=== PATIENT | male | born 1950 | race Caucasian/White ===

== ENCOUNTER → 2023-08-01 07:39 | Outpatient (REF) | payer OTHER, SELFPAY | LOC: RAD 07:39 | PROVIDERS: ATTENDING PHYSICIAN Internal Medicine | DX: Z86.73 Personal history of transient ischemic attack (TIA), and cerebral infarction without residual deficits (principal); I10 Essential (primary) hypertension; I70.0 Atherosclerosis of aorta | CPT/HCPCS: 93880 ==

== ENCOUNTER → 2024-10-03 16:28 | Outpatient (REF) | payer OTHER, SELFPAY | LOC: RAD 16:28 | PROVIDERS: ATTENDING PHYSICIAN Internal Medicine Cardiovascular Disease; FAMILY PHYSICIAN Internal Medicine | DX: I77.810 Thoracic aortic ectasia (principal); I10 Essential (primary) hypertension | CPT/HCPCS: 71275; Q9967 ==

== ENCOUNTER 2024-10-06 07:58 | Emergency (ER) | payer OTHER, SELFPAY ==
[2024-10-06] VITALS (9 sets, daily range): BP systolic 104–154; BP diastolic 70–118; BMI 23.7
--- NOTE | 2024-10-06 08:51 | ED.GENMED ---
History of Present Illness
General
Chief Complaint: Heart Rate Problem
Source: patient and spouse
Exam Limitations: none
Time Seen by Provider: 10/06/24 08:37
Nursing documentation reviewed up to this point in time: agreed with
History of Present Illness
History of Present Illness:
74-year-old male presents emergency department complaining of heart racing for the past few hours. He noticed on his watch that his heart rate was in the 150s, and came to the emergency department. He has a history of atrial fibrillation, takes
Xarelto, and has had [address] Joy.
Past History
Past History
ED Past Medical History: Arrthythmia and HTN
ED Past Surgical History: Appendectomy and Cholecystectomy
Social History
Tobacco: Non-smoker
Alcohol: Occasional
Drug: None
Personal:
Living: with family
Employment: Retired
Family History
Family History: Negative Early CAD
Review of Systems
Review of Systems
Allergies reviewed?: Yes
All Other Systems: Not applicable
Constitutional: Reports no symptoms
EENT: Reports no symptoms
Respiratory: Reports no symptoms
Cardiac: Reports palpitations
ABD/GI: Reports no symptoms
: Reports no symptoms
Musculoskeletal: Reports no symptoms
Skin: Reports no symptoms
Neurological: Reports no symptoms
Endocrine: Reports no symptoms
Hematologic/Lymphatic: Reports no symptoms
Psychiatric: Reports no symptoms
Phy Exam
Physical Exam
Physical Exam:
Physical Exam
General: no apparent distress, not acutely ill
Neck: supple. no meningeal signs. normal posterior pharynx
Heart: s1/s2 tachycardia, no murmur. equal radial
pulses.
HEENT: Pupils equal round reactive to light, EOMI
Lungs: no acute respiratory distress. clear bilaterally
Abdomen: normal bowel sounds. not tender. no CVAT
Neuro: alert and oriented. no focal neurological deficits cranial nerves II through XII intact
Skin: no rash
Psychiatric: well kept. interactive and cooperative
Extremities: no edema. no calf tenderness. negative homans. good distal pulses
Course
Orders/Labs/Results
Orders:
Orders
10/06/24 08:00
ECG [Electrocardiogram (*1)] Urgent
Reason for Study: Tachycardia
EKG- Treatment ONCE
10/06/24 08:50
Diltiazem HCl [Cardizem] 10 mg IV NOW STA
10/06/24 08:52
Diltiazem 125 mg/125 ml Nss [Cardizem] 125 mg in 125 ml IV NOW
Initial dose in mg/hr, then titrate:: 5
Titrate to keep:: Heart rate 80-100 bpm
Titrate by mg/hr:: 5 mg/hr
Frequency of titrations (minutes):: 15
Maximum dose in mg/hr:: 15
10/06/24 09:14
Complete Blood Count/With Diff Urgent
Comprehensive Metabolic Panel Urgent
Magnesium Urgent
10/06/24 10:07
EKG [Electrocardiogram (*1)] Urgent
Reason for Study: Atrial Fibrillation
EKG- Treatment ONCE
Abnormal Lab Results
10/06/24
09:14
RBC 4.43 L 10^6/uL
(4.70-6.10)
Monocytes % 12.2 H %
(1.7-9.3)
Chloride 108 H mmol/L
(98-107)
Glucose 114 H mg/dl
(70-99)
10/06/24 09:14
10/06/24 09:14
Vital Signs
Initial and Last Documented VS:
Initial Vital Signs
Temp Pulse Resp BP Pulse Ox
98.4 F 145 18 144/103 98
10/06/24 08:06 10/06/24 08:06 10/06/24 08:06 10/06/24 08:06 10/06/24 08:06
Last Documented Vital Signs
Temp Pulse Resp BP Pulse Ox
98.4 F 89 15 126/73 97
10/06/24 08:06 10/06/24 11:45 10/06/24 11:45 10/06/24 11:00 10/06/24 11:45
MDM/Problems Addressed
Differential Diagnosis Includes:
Rapid atrial flutter
MDM/Problems Addressed:
74-year-old male with rapid atrial flutter. Improved after diltiazem. Rate controlled. Patient will follow-up with Dr. Joy.
Chronic conditions affecting care: Arrhythmia
Acute Exacerbation and/or Progression of Chronic Illness: Arrhythmia
*Pulse Oximetry
Patient hypoxic: no
*EKG
Interpreted by ED Provider?: Yes
EKG Intrepretation Date: 10/06/24
EKG Intrepretation Time: 08:03
Interpretation: abnormal
Comparison EKG: changes noted
Heart Rate: 144
Rate: tachycardiac
Rhythm: a-fib
[place]: normal axis
Interval: normal interval
QRS Pattern: normal QRS
Ischemia: no ischemia
*Medical Affairs Leader Interpretation
Rate: tachycardiac
Interpretation: abnormal
Heart Rate: 125
Rhythm: a-fib
*Critical Care Note
Total Time (30-74mins, 75-104mins- exclusive of procedures): 32
comment:
Critical care statement: A total of 32 minutes of critical care time was provided for this patient. This includes management of unstable vital signs, evaluation of the patient at bedside, reviewing the patient's pertinent medical records, discussion
with consultants, review of old EKGs and review of pertinent medical records. This time with separate from time utilized to perform the aforementioned documented procedures
Data Reviewed
Review of Other/Old Records Reveals: Operative Reports (Prior cardioversion by Dr. Villela on 02/15/2023)
Source: records
Patient Management
Social determinants of health affecting care: Living situation and Strong social support
Escalation/DeEscalation of care consider admission/obs:
Admit not indicated
ED Attending Note
-
Portions of this chart may have been created with voice recognition software.� Occasional wrong word or��sound alike� substitutions may have occurred due to the inherent limitations of voice recognition software.
Discharge Plan
Departure
Patient Disposition: Home (Routine Discharge)
Date of Disposition: 10/06/24
Time of Disposition: 11:42
Patient with high blood pressure during this ER visit?: No
Condition: Good
Discharge Problem:
Atrial flutter with rapid ventricular response
Instructions: Atrial fibrillation and atrial flutter - ED discharge instructions
Prescriptions:
No Action
terazosin 1 MG capsule
3 mg PO HS
Valsartan
160 mg PO DAILY
atorvastatin 40 MG tablet
40 mg PO QPM
diltiazem HCl 240 MG capsule,extended release 24hr
240 mg PO DAILY
furosemide 20 mg Tablet
20 mg PO DAILY
lisinopril 40 mg Tablet
40 mg PO DAILY
coenzyme Q10 [Co Q-10] 100 mg Capsule
100 mg PO HS
Xarelto 20 mg Tablet
20 mg PO QPM
diltiazem HCl 120 mg Tablet
120 mg PO HS PRN (Reason: tachycardia)
ascorbic acid (vitamin C) [Vitamin C] 500 mg Tablet
500 mg PO DAILY
Multivitamin 50 Plus Tablet
1 tab PO DAILY
vitamin A-vitamin C-vit E-min Tablet
1 tab PO DAILY
diltiazem HCl 120 mg Capsule,Extended Release 24 Hr
120 mg PO QPM
Referrals:
Kendall Choudhury MD [Family Provider] -
Joy,Mikel D., MD [Active] - Call in 1-3 days for appt
Interventions
Interventions:
*Risk Screen - Suicide Last Done: 10/06/24 08:06
*General Assessment Last Done: 10/06/24 09:04
*Neglect/Abuse Screening Last Done: 10/06/24 08:06
*ED- Fall Risk Assessment Last Done: 10/06/24 09:04
*ED COVID-19 Vaccine History Last Done: 10/06/24 09:04
*Nursing Disposition Last Done: 10/06/24 12:16
ED- Cardiac Assessment Last Done: 10/06/24 09:04
ED- Pulmonary Assessment Last Done: 10/06/24 09:06
Discharge Date and Time
Discharge Date/Time: 10/06/24 12:16
Print Language: YORUBA
[2024-10-06] MEDS: CARDIZEM 10 MG IV (09:01)
[2024-10-06] MEDS: CARDIZEM 125 IV (09:11)
[2024-10-06 09:26] LABS: % Basophils 0.4 % (0-2); % Eosinophils 2.9 % (0-6); % Immature Granulocytes 0.2 % (0-0.5); % Lymphocytes 26.9 % (20.5-51.1); % Monocytes 12.2 % (1.7-9.3); % Neutrophils 57.4 % (42.2-75.2); Absolute Eosinophils 0.2 10^3/uL (0-0.7); Absolute Lymphocytes 1.4 10^3/uL (1.2-3.4); Absolute Monocytes 0.6 10^3/uL (0.1-0.6); Absolute Neutrophils 2.9 10^3/uL (1.4-6.5); Hematocrit 40.6 % (39.0-52.0); Hemoglobin 13.6 g/dL (13.0-18.0); Mean Corp Hgb Conc. 33.5 g/dL (33.0-37.0); Mean Corpuscular Hgb 30.7 pg (27.0-31.0); Mean Corpuscular Volume 91.6 fL (80.0-94.0); Mean Platelet Volume 9.7 fL (7.4-10.4); Nucleated Red Blood Cells % 0 % (-); Platelet Count 213 10^3/uL (130-400); Red Blood Cell Count 4.43 10^6/uL (4.70-6.10); Red Cell Dist. Width 13.1 % (11.5-14.5); White Blood Cell Count 5.1 10^3/uL (4.8-10.8)
[2024-10-06 09:40] LABS: ALT (SGPT) 39 U/L (0-50); AST (SGOT) 38 U/L (17-59); Albumin 4.4 g/dl (3.5-5.0); Alkaline Phosphatase 96 U/L (38-126); Blood Urea Nitrogen 15 mg/dl (9-20); Calcium 9.4 mg/dl (8.4-10.2); Carbon Dioxide 28 mmol/L (22-30); Chloride 108 mmol/L (98-107); Estimated Creatinine Clearance 96 ml/min; Glucose 114 mg/dl (70-99); Magnesium 2.3 mg/dl (1.6-2.3); Potassium 4.1 mmol/L (3.5-5.1); Sodium 144 mmol/L (135-145); Total Bilirubin 1.2 mg/dl (0.2-1.3); Total Protein 7.1 g/dl (6.3-8.2); eGFR > 60.00
== END 2024-10-06 12:16 | disposition home or self-care (01) ==
LOC: EMR 07:58
PROVIDERS: EMERGENCY PHYSICIAN Emergency Medicine; FAMILY PHYSICIAN Internal Medicine
DX: I48.92 Unspecified atrial flutter (principal); I10 Essential (primary) hypertension; I48.91 Unspecified atrial fibrillation; Z79.01 Long term (current) use of anticoagulants; Z90.49 Acquired absence of other specified parts of digestive tract
CPT/HCPCS: 96374; 99291; 80053; 83735; 85025; 93005

== ENCOUNTER → 2024-10-10 09:59 | Day surgery (SDC) | payer OTHER, SELFPAY ==
--- NOTE | 2024-10-10 11:26 | ITS.CL.CARDI ---
[facility] - Cardioversion
Cardioversion
Procedure Report:
Date of Procedure: 10/10/24
Procedure: Cardioversion
Indication: Symptomatic atrial fibrillation
Performing Physician: Kenneth Matthews MD
Technique: The patient was brought to the holding area. Signed informed consent was obtained. A time out was called and performed. The patient was anesthetized by the anesthesia service. Anticoagulation status was reviewed and appropriate. ROCIO
revealed no LA appendage thrombus. R2 pads were placed anteriorly and posteriorly. A 200 J synchronized biphasic shock restored normal sinus rhythm without significant bradycardia. There were no complications.
Conclusion: Uncomplicated cardioversion from atrial fibrillation to sinus rhythm.
Recommendation: Routine post cardioversion care. Continue local intermodal truck driver anticoagulation.
== END ==
LOC: CATH 09:59
PROVIDERS: ATTENDING PHYSICIAN Internal Medicine Cardiovascular Disease; FAMILY PHYSICIAN Internal Medicine; OTHER PHYSICIAN Internal Medicine Cardiovascular Disease
DX: I35.2 Nonrheumatic aortic (valve) stenosis with insufficiency (principal); I08.3 Combined rheumatic disorders of mitral, aortic and tricuspid valves; I48.91 Unspecified atrial fibrillation; Z79.01 Long term (current) use of anticoagulants; I08.8 Other rheumatic multiple valve diseases
CPT/HCPCS: 93312 ×2; 93320; 92960; 93005; 93325

== ENCOUNTER → 2024-11-18 07:40 | Outpatient (REF) | payer OTHER, SELFPAY | LOC: HWRCS 07:40 | PROVIDERS: ATTENDING PHYSICIAN Nurse Practitioner; FAMILY PHYSICIAN Internal Medicine | DX: I77.810 Thoracic aortic ectasia (principal); I10 Essential (primary) hypertension; I25.10 Atherosclerotic heart disease of native coronary artery without angina pectoris | CPT/HCPCS: 78452; 93017; A9500 ==

== ENCOUNTER → 2024-12-17 11:23 | Outpatient (REF) | payer OTHER, SELFPAY | LOC: DHSLP 11:23 | PROVIDERS: ATTENDING PHYSICIAN Internal Medicine Critical Care Medicine; FAMILY PHYSICIAN Nurse Practitioner | DX: G47.33 Obstructive sleep apnea (adult) (pediatric) (principal) | CPT/HCPCS: 95800 ==

== ENCOUNTER → 2025-01-16 14:25 | Outpatient (REF) | payer OTHER, SELFPAY | LOC: HWRAD 14:25 | PROVIDERS: ATTENDING PHYSICIAN Internal Medicine | DX: R10.31 Right lower quadrant pain (principal) | CPT/HCPCS: 76882 ==

== ENCOUNTER → 2025-02-07 07:42 | Outpatient (REF) | payer OTHER, SELFPAY | LOC: HWRAD 07:42 | PROVIDERS: ATTENDING PHYSICIAN Internal Medicine | DX: R10.31 Right lower quadrant pain (principal) | CPT/HCPCS: 74176 ==

== ENCOUNTER 2025-06-06 09:24 | Day surgery (SDC) | payer OTHER, SELFPAY ==
[2025-06-04 11:20] VITALS: BMI 22.8
--- NOTE | 2025-06-06 11:17 | ITS.CL.CARDI ---
[facility] - Cardioversion
Cardioversion
Procedure Report:
Date of Procedure: 06/06/2025
Procedure: Cardioversion
Indication: Symptomatic atrial fibrillation
Performing Physician: Sarah Briggs MD
Technique: The patient was brought to the holding area. Signed informed consent was obtained. A time out was called and performed. The patient was anesthetized by the anesthesia service. Anticoagulation status was reviewed and appropriate. R2 pads
were placed anteriorly and posteriorly. A (360) J synchronized biphasic shock restored normal sinus rhythm without significant bradycardia. There were no complications.
Conclusion: Uncomplicated cardioversion from atrial fibrillation to sinus rhythm.
Recommendation: Routine post cardioversion care. Continue buttermaker continuous churn anticoagulation.
== END 2025-06-06 11:21 | disposition home or self-care (01) ==
LOC: CATH 09:24
PROVIDERS: ATTENDING PHYSICIAN Internal Medicine Cardiovascular Disease; FAMILY PHYSICIAN Internal Medicine; OTHER PHYSICIAN Internal Medicine
DX: I48.0 Paroxysmal atrial fibrillation (principal); Z79.01 Long term (current) use of anticoagulants; I48.92 Unspecified atrial flutter; E78.5 Hyperlipidemia, unspecified; I10 Essential (primary) hypertension; Z86.73 Personal history of transient ischemic attack (TIA), and cerebral infarction without residual deficits; Z86.79 Personal history of other diseases of the circulatory system; I71.20 Thoracic aortic aneurysm, without rupture, unspecified; G47.33 Obstructive sleep apnea (adult) (pediatric); M19.90 Unspecified osteoarthritis, unspecified site; N40.0 Benign prostatic hyperplasia without lower urinary tract symptoms; I44.0 Atrioventricular block, first degree; I49.1 Atrial premature depolarization; Z79.899 Other long term (current) drug therapy; Z87.891 Personal history of nicotine dependence; Z96.652 Presence of left artificial knee joint; Z90.49 Acquired absence of other specified parts of digestive tract
CPT/HCPCS: 92960; 93005